=== PATIENT | male | born 1965 | race Caucasian/White ===

== ENCOUNTER 2021-01-11 09:11 | Outpatient (REF) | payer OTHER, SELFPAY ==
[2021-01-11 10:30] LABS: Hematocrit 46.1 % (42.0-52.0); Hemoglobin 14.9 g/dl (14.0-18.0); Mean Corpuscular HGB Conc 32.3 g/dl (31.0-36.0); Mean Corpuscular Hemoglobin 28.3 pg (27.0-33.0); Mean Corpuscular Volume 87.5 fL (80.0-98.0); Mean Platelet Volume 9.9 fL (9.4-12.4); Platelet Count 215 X10*3/uL (160-400); Red Blood Count 5.27 X10*6/uL (4.60-5.80); White Blood Count 6.2 X10*3/uL (4.8-10.8)
[2021-01-11 10:39] LABS: Appearance Urine CLEAR; Color Urine YELLOW; Glucose Urine UA NEG (NEG); Leukocyte Esterase Urine NEG (NEG); Nitrite Urine NEG (NEG); Specific Gravity - Urine <= 1.005 (1.005-1.025); Urine Blood NEG (NEG); Urine Ketones NEG (NEG); Urine Protein NEG (NEG-TRACE)
[2021-01-11 10:43] LABS: Alanine Aminotransferase 21 U/L (0-40); Albumin Level 4.2 g/dL (3.5-5.0); Alkaline Phosphatase 56 U/L (39-117); Anion Gap 9 (12-20); Aspartate Amino Transferase 25 U/L (5-37); Bilirubin Direct 0.3 mg/dL (0.0-0.5); Bilirubin Total 0.8 mg/dL (0.0-1.0); Blood Urea Nitrogen 9 mg/dL (9-16); Calcium 9.1 mg/dL (8.4-10.2); Carbon Dioxide 29 mmol/L (22-29); Chloride 105 mmol/L (96-108); Cholesterol 173 mg/dL; Estimated Glomerular Filt Rate > 60; Glucose Random 96 mg/dL (60-115); HDL Cholesterol 41 mg/dL; LDL Cholesterol Calculated 115 mg/dl; Sodium 139 mmol/L (135-145); Total Protein 6.8 g/dL (6.5-8.0); Triglycerides 88 mg/dL
[2021-01-18 19:41] LABS: Vitamin D 25-OH, D2 <4 ng/mL; Vitamin D 25-OH, D3 19 ng/mL; Vitamin D 25-OH, Total 19 ng/mL (30-100)
== END 2021-01-11 09:12 | disposition home or self-care (01) ==
LOC: HO.10HDL 09:11
PROVIDERS: Visit Provider Internal Medicine
DX: Z00.00 Encounter for general adult medical examination without abnormal findings (principal)
CPT/HCPCS: 36415; 80048; 80061; 80076; 81003; 82306; 85027

== ENCOUNTER 2022-03-01 09:01 | Outpatient (REF) | payer OTHER, SELFPAY ==
[2022-03-01 10:18] LABS: Hematocrit 46.4 % (42.0-52.0); Hemoglobin 15.2 g/dl (14.0-18.0); Mean Corpuscular HGB Conc 32.8 g/dl (31.0-36.0); Mean Corpuscular Hemoglobin 27.2 pg (27.0-33.0); Mean Corpuscular Volume 83.2 fL (80.0-98.0); Mean Platelet Volume 9.7 fL (9.4-12.4); Platelet Count 230 X10*3/uL (160-400); Red Blood Count 5.58 X10*6/uL (4.60-5.80); White Blood Count 6.5 X10*3/uL (4.8-10.8)
[2022-03-01 11:22] LABS: Alanine Aminotransferase 30 U/L (0-40); Albumin Level 4.1 g/dL (3.5-5.0); Alkaline Phosphatase 49 U/L (39-117); Anion Gap 11 (12-20); Aspartate Amino Transferase 25 U/L (5-37); Bilirubin Direct 0.2 mg/dL (0.0-0.5); Bilirubin Total 0.6 mg/dL (0.0-1.0); Blood Urea Nitrogen 13 mg/dL (9-16); Calcium 9.2 mg/dL (8.4-10.2); Carbon Dioxide 28 mmol/L (22-29); Chloride 105 mmol/L (96-108); Cholesterol 187 mg/dL; Estimated Glomerular Filt Rate > 60; Glucose Random 94 mg/dL (60-115); HDL Cholesterol 38 mg/dL; LDL Cholesterol Calculated 113 mg/dl; Potassium 4.3 mmol/L (3.3-5.1); Sodium 140 mmol/L (135-145); Total Protein 6.6 g/dL (6.5-8.0); Triglycerides 181 mg/dL
[2022-03-01 11:42] LABS: Thyroid Stimulating Hormone 0.69 uIU/mL (0.32-4.0)
== END 2022-03-01 09:02 | disposition home or self-care (01) ==
LOC: HO.LAB 09:01
PROVIDERS: PCP Internal Medicine; Visit Provider Internal Medicine
DX: E78.00 Pure hypercholesterolemia, unspecified (principal)
CPT/HCPCS: 36415; 80048; 80061; 80076; 84443; 85027

== ENCOUNTER 2022-08-29 09:46 | Outpatient (AMB) | payer OTHER, SELFPAY ==
--- NOTE | 2022-08-29 09:48 | MHC.PC.OV ---
Vital Signs 08/29/22 09:49 Height 5 ft 3 in Weight 169 lb 4 oz BMI 30.0 BP 120/80 Blood Pressure Location Lt brachial Position Sitting Pulse 80 Pulse Source Pulse Oximeter Pulse Oximetry (%) 96 Oxygen Delivery Method Room Air Intake Visit Reasons: 6m F/U Intake Note: Patient is here to follow up on health concerns. Complaint of ongoing migraine. Requesting for cologard results. Ramp And Cargo Supervisor Required: No Specimen Preparation Assistant: Not Required per policy Accompanied by: Self / Same As Patient Allergies No Known Allergies Allergy (Verified 08/29/22 13:12) almonds Allergy (Unknown, Uncoded 08/29/22 13:12) itchy throat Medication List - Last Reconciled 08/29/22 by Ramone Chavez MD cholecalciferol (vitamin D3) (Dialyvite Vitamin D3 Max) 1,250 mcg PO QWEEK multivitamin 1 tab PO DAILY Tobacco use date assessed: 08/29/22 Dental Screening Dental Screen Date: 08/29/22 Did you have a dental visit in the last 12 months?: Yes Did you have a dental problem in the last 6 months where you did not have access to dental care?: No Was dental information given to patient?: Patient has dentist HPI 6m F/U HPI Details 57-year-old male presents to the office to discuss his chronic medical conditions. Patient has been traveling extensively. He has been suffering from headaches for the past 8 weeks. Constant headache in the midline. Minimal relief with local analgesia 6. He has had history of migraine in the past. No nausea or vomiting. No vision changes. When he was in [place], he was treated for sinusitis with antibiotics. 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 [facility] Surgical History History of elbow surgery Social History Housing: Condominium Alcohol intake: never Patient Tobacco Use Status: Current someday Tobacco user Tobacco use type: Cigarette Cigarettes Per Day: 1 Years Smoked: 30 years e-Cigarette/Vaping Use: Never Used Second Hand Smoke Exposure: No service: No Current occupational status: employed Current occupation: Self Employed Current occupational exposures/hazards: No Cognitive needs: No Hearing needs: No Vision needs: No Questionnaire Thrive Questionnaire Date Thrive assessed: 02/28/22 SANA-7 AMB Questionnaire SANA-7 Date SANA - 7 assessed: 02/28/22 Source: Developed by Drs. Giles Oviedo, Janice Dunn, Zach Pascal and colleagues, with an educational felipa from [employer]. Physical exam (Primary Care) Vital Signs: Last Vital Signs Pulse 80 08/29/22 09:49 BP 120/80 08/29/22 09:49 Pulse Ox 96 08/29/22 09:49 Oxygen Delivery Method Room Air 08/29/22 09:49 BMI result Body Mass Index 30.0 Tobacco/Smoking Status: Tobacco use Status Tobacco use date assessed 08/29/22 08/29/22 09:56 Patient Tobacco Use Status Current someday Tobacco 08/29/22 09:56 Tobacco use type Cigarette 08/29/22 09:56 e-Cigarette/Vaping Use Never Used 08/29/22 09:56 Are you ready to quit: No Tobacco cessation counseling provided: No Thrive Assessment: Date of Thrive Assessment Date Thrive assessed 02/28/22 08/29/22 09:56 Advance Care Planning discussion: Exists, not on file Date of discussion: 08/29/22 Who was present: Patient Forms completed: Health Care Proxy and MOLST Time spent: 1-15 minutes, not on file Actual minutes spent: 5 Const General: cooperative, healthy appearing and comfortable HENMT Head: Yes normal to inspection and Yes atraumatic Eyes General: appearance normal, both eyes and all related structures Neck Neck: Yes normal visual inspection and Yes full ROM Chest Chest palpation & inspection: normal inspection of the chest Resp Effort & Inspection: normal respiratory effort Auscultation: clear to auscultation bilaterally Cardio Jugular venous distension: no JVD Palpation: normal PMI Rate: regular rate Heart sounds: S1 normal heart sound present and S2 normal heart sound present GI Palpation (GI): Soft to palpation and No hepatosplenomegaly present Extrem General: Yes normal to inspection and Yes full ROM Assessment and Plan Assessment & Plan (1) Headache: Code(s): R51.9 - Headache, unspecified Plan: A CT scan of the head has been scheduled. Will call with the results. Blood work has been ordered. Orders: Orders Basic Metabolic Panel Today R51.9 - Headache, unspecified Lipid Panel Today R51.9 - Headache, unspecified Liver Panel Today R51.9 - Headache, unspecified Thyroid Stimulating Hormone Today R51.9 - Headache, unspecified Complete Blood Count no Diff Today R51.9 - Headache, unspecified UA and rflx microscopic Today R51.9 - Headache, unspecified Coding Level of Care Code Est Pt Level 4 (03789) Diagnoses Headache R51.9 Additional Codes Vital Signs *Quality* - Advance Care Planning discussion: Exists, not on file ([id number]) Vital Signs *Quality* - Time spent: 1-15 minutes, not on file ([id number])
[2022-08-29 09:49] VITALS: BP 120/80; PULSE 80; O2SAT 96
== END 2022-08-29 11:27 | disposition home or self-care (01) ==
PROVIDERS: Visit Provider Internal Medicine
DX: R51.9 Headache, unspecified (principal); Z00.00 Encounter for general adult medical examination without abnormal findings
CPT/HCPCS: 1123F; 1124F; 99214

== ENCOUNTER 2022-08-30 09:37 | Outpatient (REF) | payer OTHER, SELFPAY ==
[2022-08-30 10:40] LABS: Hematocrit 47.5 % (42.0-52.0); Hemoglobin 15.4 g/dl (14.0-18.0); Mean Corpuscular HGB Conc 32.4 g/dl (31.0-36.0); Mean Corpuscular Hemoglobin 27.5 pg (27.0-33.0); Mean Corpuscular Volume 84.7 fL (80.0-98.0); Mean Platelet Volume 9.7 fL (9.4-12.4); Platelet Count 216 X10*3/uL (160-400); Red Blood Count 5.61 X10*6/uL (4.60-5.80); Red Cell Distribution Width 12.7 % (11.0-16.0); White Blood Count 6.4 X10*3/uL (4.8-10.8)
[2022-08-30 10:48] LABS: Appearance Urine Clear; Color Urine Yellow; Glucose Urine UA Negative (Negative); Leukocyte Esterase Urine Negative (Negative); Nitrite Urine Negative (Negative); PH 6.5 (5.0-9.0); Urine Blood Negative (Negative); Urine Ketones Negative (Negative); Urine Protein Negative (Neg-Trace)
[2022-08-30 11:22] LABS: Alanine Aminotransferase 27 U/L (0-40); Albumin Level 4.2 g/dL (3.5-5.0); Alkaline Phosphatase 57 U/L (39-117); Anion Gap 10 (12-20); Aspartate Amino Transferase 23 U/L (5-37); Bilirubin Direct 0.2 mg/dL (0.0-0.5); Bilirubin Total 0.6 mg/dL (0.0-1.0); Blood Urea Nitrogen 9 mg/dL (9-16); Calcium 9.1 mg/dL (8.4-10.2); Carbon Dioxide 29 mmol/L (22-29); Chloride 105 mmol/L (96-108); Cholesterol 189 mg/dL; Estimated Glomerular Filt Rate > 60; Glucose Random 89 mg/dL (60-115); HDL Cholesterol 42 mg/dL; LDL Cholesterol Calculated 114 mg/dl; Potassium 3.9 mmol/L (3.3-5.1); Sodium 140 mmol/L (135-145); Total Protein 6.9 g/dL (6.5-8.0); Triglycerides 165 mg/dL
[2022-08-30 11:27] LABS: Thyroid Stimulating Hormone 0.98 uIU/mL (0.32-4.0)
== END 2022-08-30 09:38 | disposition home or self-care (01) ==
LOC: HO.LAB 09:37
PROVIDERS: PCP Internal Medicine; Visit Provider Internal Medicine
DX: R51.9 Headache, unspecified (principal)
CPT/HCPCS: 36415; 80048; 80061; 80076; 81003; 84443; 85027

== ENCOUNTER 2022-09-06 12:30 | Emergency (ER) | payer OTHER, SELFPAY ==
--- NOTE | ~2022-09-06 | CT_ITS ---
EXAMINATION: CT HEAD WITHOUT CONTRAST CLINICAL INFORMATION: Headache. Hollenhorst plaque left eye. COMPARISON: 01/26/2019 TECHNIQUE: Contiguous axial imaging was performed from the skull base to vertex without intravenous administration of contrast. This CT examination was performed using dose optimization techniques as appropriate, variously including the following: *Automated exposure control *Adjustment of mA and/or kV according to patient size (this includes techniques or standardized protocols for targeted exams where dose is matched to indication/reason for exam; i.e. extremities or head) *Use of iterative reconstruction technique DLP: 630 mGy-cm FINDINGS: There is no evidence of acute intracranial hemorrhage or territorial infarction. No mass effect or midline shift is seen. Quinonez to white matter differentiation is preserved. No extra-axial fluid collections are identified. The ventricles are normal in size. The osseous structures and soft tissues are unremarkable. The mastoid air cells and visualized portions of the paranasal sinuses are well aerated. Possible left maxillary sinus mucous retention cyst. CT/CT head/brain wo IV con IMPRESSION: No acute intracranial pathology.
[2022-09-06 12:47] VITALS: BP 168/97; PULSE 74; RESP 18; TEMP 36.7; O2SAT 98; BMI 29.2
--- NOTE | 2022-09-06 12:47 | ED_ITS ---
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 Patient reports that he has been experiencing a left-sided headache for the past 3-4 months. It typically lasts for days at a time with pressure to the left eye before resolving. He was evaluated by his primary care provider about a week ago, states that he had blood work obtained which was reportedly normal. He saw the foiling machine operator today who advised him that he has a Hollenhurst plaque in this puts him at risk for stroke therefore he was referred to the emergency department. Patient denies dizziness, lightheadedness, vision changes, neck pain, neck stiffness, chest pain, shortness of breath, difficulty breathing, nausea, vomiting, abdominal pain, numbness or tingling of the extremities, weakness. Related Data Home Medications Medication Instructions Recorded Confirmed multivitamin 1 tab PO DAILY 01/11/21 08/29/22 Previous Rx's Medication Instructions Recorded cholecalciferol (vitamin D3) 1,250 1,250 mcg PO QWEEK #12 tabs 04/18/21 mcg (50,000 unit) tablet (Dialyvite Vitamin D3 Max) [id number] 1 cap PO Q8H PRN pain #14 caps 09/06/22 50 mg-300 mg-40 mg capsule (Fioricet) Allergies Allergy/AdvReac Type Severity Reaction Status Date / Time No Known Allergies Allergy Verified 08/29/22 13:12 almonds Allergy Unknown itchy Uncoded 08/29/22 13:12 throat Review of Systems Review of Systems: Constitutional : No Fever, No Chills, No Fatigue ENT/Mouth : No sore throat, No Rhinorrhea Eyes: No Eye Pain, No Swelling, No Redness Cardiovascular : No Chest Pain, No SOB, No Dyspnea on Exertion Respiratory : No Cough, No Sputum Gastrointestinal : No Nausea, No Vomiting, No Diarrhea, No abdominal Pain Genitourinary : No Dysuria, No Urinary Frequency, No Hematuria, Musculoskeletal : No joint pain, No Myalgias, No Joint Swelling Skin : No Skin Lesions, No rash Neuro : No Weakness, No Numbness, No Dizziness, positive Headache Psych : No Anxiety/Panic, No Depression Heme/Lymph: No Bruising, No Bleeding,No Lymphadenopathy Endocrine : No Polyuria, No Polydipsia Yes all other systems are reviewed and are negative [facility] Past Medical History Attestation statement: The following information was validated with the patient. Source: old records reviewed Surgical History History of elbow surgery Social History Social History Housing: Condominium Alcohol intake: never Patient Tobacco Use Status: Current someday Tobacco user Tobacco use type: Cigarette Cigarettes Per Day: 1 Years Smoked: 30 years e-Cigarette/Vaping Use: Never Used Second Hand Smoke Exposure: No Advance Directives: No Advance Directives Information Provided: Yes service: No Current occupational status: employed Current occupation: Self Employed Current occupational exposures/hazards: No Cognitive needs: No Hearing needs: No Vision needs: No Physical Exam ED Vital Signs: Vital Signs - 24 hr 09/06/22 12:47 09/06/22 17:54 09/06/22 20:23 Temperature 98.1 F 97.3 F Pulse Rate 74 62 62 Respiratory Rate 18 18 16 Blood Pressure 168/97 H 148/93 H 155/91 H Pulse Oximetry 98 96 96 Oxygen Delivery Method Room Air Room Air Room Air BMI result Body Mass Index 29.2 Appearance: Alert.?Oriented to person, place and time. No acute di stress.?Normal affect. Head: Normocephalic, atraumatic Eyes: Pupils equal, round and reactive to light. EOMI. No nystagmus. No tenderness to palpation over the temporal region. ENT: External auditory canal normal tympanic membrane pearly scott and intact bilaterally. Oropharynx normal. Neck: Normal inspection.? Neck supple. CVS: Heart sounds normal. Normal heart rate and rhythm.? Pulses normal.?? Respiratory: No respiratory distress.? Lung sounds clear to auscultation bilaterally?? Abdomen: Soft and non-tender. Normoactive bowel sounds. ?? Skin: Skin warm and dry.? Normal skin color.? ?? Extremities: No lower extremity edema.? Neuro: Moves all extremities spontaneously. Sensation intact bilaterally. CN II- XII intact. No focal neuro deficits. Ambulatory with steady gait. Course Course Course Narrative: This is a rapid medical exam: Additional HPI, ROS, PE not included below will be deferred to primary provider. Patient is a 57-year-old male presenting to the ED with complaint of severe headache for months, left eye pressure. States had lens replacement to left eye 3 yrs prior. Denies history of migraines. Saw foiling machine operator today and was told he has Hollenhorst plaque and was referred to the ED. States he is not on any medications, just vitamins. Plan: labs, CT head Reevaluation(s) Reevaluation #1: ESR and CRP are within normal limits, not consistent with GCA. Troponin <2.7, EKG revealing normal sinus rhythm without acute ischemic findings, or sign of LVH. Patient had significant improvement headache after receiving Fioricet. Will send prescription to the pharmacy advised outpatient follow-up with primary care provider as noted previously in the narrative. All questions answered. Stable for discharge. Time: 20:09 Medications Administered Discontinued Medications Generic Name Dose Route Start Last Admin Trade Name Freq PRN Reason Stop Dose Admin Acetaminophen/Butalbital/Caffeine 1 tab 09/06/22 17:34 09/06/22 17:53 Butalb/Acetamin/Caff 50/325/40 Tablet PO 09/06/22 17:35 1 tab ONCE ONE Administration Medical Decision Making Medical Decision Making MDM Narrative: NIH stroke score 0. No focal neurological deficits upon examination. Patient was advised to his foiling machine operator that he has a Hollenhurst plaque, which puts him at risk for stroke and therefore he was advised to come to the emergency department for evaluation. Reviewed with patient stroke risk factor reductions; management of hypertension, patient is currently overweight with BMI at 29.2, recent cholesterol levels obtained 09/01/2022 without abnormality, LDL could be lower given diagnosis, smoking cessation as he is an occasional smoker , diet and exercise, avoidance of alcohol. CT of the head was obtained which reveals no acute intracranial pathology, not consistent with SDH, SAH, ICH, HAND SCREEN PRINTER mass. There is no meningismus, low suspicion for meningitis or encephalitis. Serum labs are overall unremarkable no leukocytosis or anemia, BMP within normal limits. Discussed with patient plan of care, will trial Fioricet at this time for pain management, additionally will obtain ESR and CRP to exclude GCA though I have a lower suspicion at this time. Differential Diagnosis Differential Diagnoses: The differential diagnosis associated with the presentation includes (SDH, SAH, ICH, HAND SCREEN PRINTER mass, meningitis, encephalitis, CVA, GCA, migraine, headache) Admission/Observation Consideration of admission/observation: Escalation of care including admission/observation considered (I considered hospital admission for intractable headache, see above narrative and course narrative) Lab Data MDM Lab Attestation statement: I reviewed the patient's lab results. (As noted above) 09/06/22 13:30 09/06/22 13:30 Labs: Lab Results 09/06/22 09/06/22 09/06/22 Range/Units 13:30 13:30 13:30 WBC 7.2 (4.8-10.8) X10*3/uL RBC 5.64 (4.60-5.80) X10*6/uL Hgb 15.7 (14.0-18.0) g/dl Hct 47.5 (42.0-52.0) % MCV 84.2 (80.0-98.0) fL MCH 27.8 (27.0-33.0) pg MCHC 33.1 (31.0-36.0) g/dl RDW 12.8 (11.0-16.0) % Plt Count 210 (160-400) X10*3/uL MPV 9.2 L (9.4-12.4) fL Immature Gran % (Auto) 1.2 H (0.0-0.4) % Neut % (Auto) 64.5 (45-73) % Lymph % (Auto) 22.5 (20-40) % Mcmullen % (Auto) 9.3 (2-11) % Eos % (Auto) 1.7 (0-4) % Baso % (Auto) 0.8 (0-2) % Lymph # (Auto) 1.6 (1.2-4.9) X10*3/uL Mcmullen # (Auto) 0.7 (0.1-1.2) X10*3/uL Eos # (Auto) 0.1 (0.0-0.4) X10*3/uL Baso # (Auto) 0.1 (0.0-0.2) X10*3/uL Abs Immat Gran (auto) 0.09 H (0.00-0.03) X10*3/uL Absolute Neuts (auto) 4.7 (2.0-8.3) x10*3/uL Absolute Nucleated RBC 0.000 (0.0-0.012) X10*3/uL Nucleated RBC % (auto) 0.0 (0.0-0.2) /100WBC ESR (0-15) MM/HR PT 11.7 (11.1-13.3) SEC INR 1.0 (0.9-1.1) Sodium 140 (135-145) mmol/L Potassium 4.0 (3.3-5.1) mmol/L Chloride 104 (96-108) mmol/L Carbon Dioxide 22 (22-29) mmol/L Anion Gap 18 (12-20) BUN 12 (9-16) mg/dL Creatinine 0.87 (0.5-1.4) mg/dL Estim Creat Clear Calc 84.9 Estimated GFR > 60 Random Glucose 104 (60-115) mg/dL Calcium 9.5 (8.4-10.2) mg/dL Troponin I High Sens (<3.5-35.0) ng/L C-Reactive Protein (< or = 0.50) mg/dL 09/06/22 09/06/22 09/06/22 Range/Units 18:39 18:39 18:39 WBC (4.8-10.8) X10*3/uL RBC (4.60-5.80) X10*6/uL Hgb (14.0-18.0) g/dl Hct (42.0-52.0) % MCV (80.0-98.0) fL MCH (27.0-33.0) pg MCHC (31.0-36.0) g/dl RDW (11.0-16.0) % Plt Count (160-400) X10*3/uL MPV (9.4-12.4) fL Immature Gran % (Auto) (0.0-0.4) % Neut % (Auto) (45-73) % Lymph % (Auto) (20-40) % Mcmullen % (Auto) (2-11) % Eos % (Auto) (0-4) % Baso % (Auto) (0-2) % Lymph # (Auto) (1.2-4.9) X10*3/uL Mcmullen # (Auto) (0.1-1.2) X10*3/uL Eos # (Auto) (0.0-0.4) X10*3/uL Baso # (Auto) (0.0-0.2) X10*3/uL Abs Immat Gran (auto) (0.00-0.03) X10*3/uL Absolute Neuts (auto) (2.0-8.3) x10*3/uL Absolute Nucleated RBC (0.0-0.012) X10*3/uL Nucleated RBC % (auto) (0.0-0.2) /100WBC ESR 2 (0-15) MM/HR PT (11.1-13.3) SEC INR (0.9-1.1) Sodium (135-145) mmol/L Potassium (3.3-5.1) mmol/L Chloride (96-108) mmol/L Carbon Dioxide (22-29) mmol/L Anion Gap (12-20) BUN (9-16) mg/dL Creatinine (0.5-1.4) mg/dL Estim Creat Clear Calc Estimated GFR Random Glucose (60-115) mg/dL Calcium (8.4-10.2) mg/dL Troponin I High Sens < 2.7 (<3.5-35.0) ng/L C-Reactive Protein < 0.10 (< or = 0.50) mg/dL Independent Interpretation I performed an independent interpretation of an: EKG Interpretation: Rate: 62 Rhythm:? Normal sinus rhythm Closplint:? Normal Normal P waves.? Normal MARY.?? Normal QRS complex.?? ST T wave :??No ST elevation, no ST depression, no T-wave inversion qTC: 393 prior studies:? None available for review The study has been interpreted contemporaneously by me. Radiology Impression Discussion of test interpretation with radiology: I have reviewed the radiologist's reading. Radiologist Impression: CT/CT head/brain wo IV con IMPRESSION: No acute intracranial pathology. External Record Review External record reviewed: Outpatient record (Primary care provider) Prescription Management I considered prescription management with: Pain Medication Critical Care Time Critical Care Time Critical Care Time: Yes Total Critical Care Time: 35 Attestation: I personally attest to this critical care time spent taking care of the patient exclusive of all other billable procedures was approximately 35 minutes including initial evaluation of patient, ordering tests, x-ray interpretation, EKG interpretation, medical consultation, documentation, re-evaluation. Discharge Plan Discharge Clinical Impression: Headache Patient Disposition: Home, Self-Care Instructions: Acute Headache (ED) Additional Instructions: I have sent a prescription for the Fioricet to your pharmacy at this helped with your headache. As discussed please follow-up with your primary care provider for further risk factor reduction Return back to emergency department any new or worsening symptoms or concerns. Prescriptions: New abegoxkkfg-qexvjnhrblilp-fqcl [Fioricet] 50-300-40 mg capsule 1 cap PO Q8H PRN (Reason: pain) Qty: 14 0RF No Action Dialyvite Vitamin D3 Max 1,250 mcg (50,000 unit) tablet 1,250 mcg PO QWEEK Qty: 12 0RF multivitamin Tablet 1 tab PO DAILY Referrals: Ramone Chavez MD [Primary Care Provider] - Interventions: ED Discharge Assessment Last Done: 09/06/22 20:50 Discharge Date/Time: 09/06/22 20:50
[2022-09-06 13:34] LABS: MANUAL DIFF FLAG NO
[2022-09-06 13:38] LABS: Basophils Absolute Auto 0.1 X10*3/uL (0.0-0.2); Basophils Percent Auto 0.8 % (0-2); Eosinophils Absolute Auto 0.1 X10*3/uL (0.0-0.4); Eosinophils Percent Auto 1.7 % (0-4); Hematocrit 47.5 % (42.0-52.0); Hemoglobin 15.7 g/dl (14.0-18.0); Imm Gran Abs Auto 0.09 X10*3/uL (0.00-0.03); Imm Gran Pct Auto 1.2 % (0.0-0.4); Lymphocytes Absolute Auto 1.6 X10*3/uL (1.2-4.9); Lymphocytes Percent Auto 22.5 % (20-40); Mean Corpuscular HGB Conc 33.1 g/dl (31.0-36.0); Mean Corpuscular Hemoglobin 27.8 pg (27.0-33.0); Mean Corpuscular Volume 84.2 fL (80.0-98.0); Mean Platelet Volume 9.2 fL (9.4-12.4); Monocytes Absolute Auto 0.7 X10*3/uL (0.1-1.2); Monocytes Percent Auto 9.3 % (2-11); Neutrophils Absolute Auto 4.7 x10*3/uL (2.0-8.3); Neutrophils Percent Auto 64.5 % (45-73); Platelet Count 210 X10*3/uL (160-400); Red Blood Count 5.64 X10*6/uL (4.60-5.80); Red Cell Distribution Width 12.8 % (11.0-16.0); White Blood Count 7.2 X10*3/uL (4.8-10.8)
[2022-09-06 13:41] LABS: Prothrombin Time 11.7 SEC (11.1-13.3)
[2022-09-06 13:51] LABS: Anion Gap 18 (12-20); Blood Urea Nitrogen 12 mg/dL (9-16); Calcium 9.5 mg/dL (8.4-10.2); Carbon Dioxide 22 mmol/L (22-29); Chloride 104 mmol/L (96-108); Creatinine Clr Calc Pharmacy 84.9; Estimated Glomerular Filt Rate > 60; Glucose Random 104 mg/dL (60-115); Sodium 140 mmol/L (135-145)
--- NOTE | 2022-09-06 17:39 | ECG_ITS ---
Test Reason : HYPERTENSION Blood Pressure : / mmHG Vent. Rate : 062 BPM Atrial Rate : 062 BPM P-R Int : 144 ms QRS Dur : 094 ms QT Int : 388 ms P-R-T Axes : 056 038 039 degrees QTc Int : 393 ms Normal sinus rhythm Normal ECG No previous ECGs available Referred By: Monika Burns Electronically Signed By:LAMAR GLYNN MD
[2022-09-06] MEDS: Butalb/Acetamin/Caff 50/325/40 TABLET 1 TAB PO (17:53)
[2022-09-06 17:54] VITALS: BP 148/93; PULSE 62; RESP 18; O2SAT 96
[2022-09-06 19:05] LABS: C Reactive Protein < 0.10 mg/dL (< or = 0.50)
[2022-09-06 19:18] LABS: Troponin-I High Sensitivity < 2.7 ng/L (<3.5-35.0)
[2022-09-06 19:25] LABS: Erythrocyte Sedimentation Rate 2 MM/HR (0-15)
[2022-09-06 20:23] VITALS: BP 155/91; PULSE 62; RESP 16; TEMP 36.3; O2SAT 96
== END 2022-09-06 20:50 | disposition home or self-care (01) ==
PROVIDERS: Nurse Practitioner Family; Registered Nurse Emergency; Emergency Provider Emergency Medicine Emergency Medical Services; PCP Internal Medicine
DX: R51.9 Headache, unspecified (principal); R94.31 Abnormal electrocardiogram [ECG] [EKG]; I10 Essential (primary) hypertension; Z79.899 Other long term (current) drug therapy
CPT/HCPCS: 36415; 70450; 80048; 84484; 85025; 85610; 85652; 86140; 93005; 99284; 99285

== ENCOUNTER → 2022-09-06 17:39 | Outpatient (BNV) | payer OTHER, SELFPAY | PROVIDERS: Emergency Provider Emergency Medicine Emergency Medical Services; PCP Internal Medicine; Visit Provider Internal Medicine Cardiovascular Disease | DX: I10 Essential (primary) hypertension (principal) | CPT/HCPCS: 93010 ==

== ENCOUNTER 2022-09-19 14:15 | Outpatient (AMB) | payer OTHER, SELFPAY ==
--- NOTE | 2022-09-19 14:23 | A.OFFPC_ITS ---
Vital Signs 09/19/22 14:24 Height 5 ft 3 in Weight 166 lb 8 oz BMI 29.5 BP 130/90 H Blood Pressure Location Lt brachial Position Sitting Pulse 70 Pulse Source Pulse Oximeter Pulse Oximetry (%) 97 Oxygen Delivery Method Room Air Intake Visit Reasons: [facility] 09/06/22 Intake Note: Patient is here to follow-up after a visit the emergency department at [facility] on 09/06/22. Ongoing headaches. Geography Teacher Required: No Irrigator Gravity Flow: Not Required per policy Accompanied by: Self / Same As Patient Allergies No Known Allergies Allergy (Verified 10/09/22 08:12) almonds Allergy (Unknown, Uncoded 10/09/22 08:12) itchy throat Medication List - Last Reconciled 10/09/22 by Ramone Chavez MD atorvastatin 10 mg PO BEDTIME cholecalciferol (vitamin D3) (Dialyvite Vitamin D3 Max) 1,250 mcg PO QWEEK multivitamin 1 tab PO DAILY sumatriptan succinate take 1 tab at onset of headache; if no relief may repeat 1 tab after at least 2 hrs; max = 4 tabs/24 hr PO Tobacco use date assessed: 09/19/22 Dental Screening Dental Screen Date: 09/19/22 Did you have a dental visit in the last 12 months?: No Did you have a dental problem in the last 6 months where you did not have access to dental care?: No Was dental information given to patient?: Patient has dentist HPI [facility] 09/06/22 HPI Details 57-year-old male presents for a follow-up visit. Medications prescribed in the last office visit year were of minimal help. 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 Patient was promptly referred to the emergency room and he was referred here. Continues to have pain around the left eye. He has intermittent headaches. [facility] Surgical History History of elbow surgery Social History (Updated 09/19/22 @ 14:31 by MICHAEL Neville) Housing: Condominium Alcohol intake: never Patient Tobacco Use Status: Former Tobacco user Tobacco use type: Cigarette Cigarettes Per Day: 1 Years Smoked: 30 years e-Cigarette/Vaping Use: Never Used Second Hand Smoke Exposure: No service: No Current occupational status: employed Current occupation: Self Employed Current occupational exposures/hazards: No Cognitive needs: No Hearing needs: No Vision needs: No Questionnaire Thrive Questionnaire Date Thrive assessed: 02/28/22 SANA-7 AMB Questionnaire SANA-7 Date SANA - 7 assessed: 02/28/22 Source: Developed by Drs. Giles Oviedo, Janice Dunn, Zach Pascal and colleagues, with an educational felipa from [employer]. Physical exam (Primary Care) Vital Signs: Last Vital Signs Pulse 70 09/19/22 14:24 BP 130/90 H 09/19/22 14:24 Pulse Ox 97 09/19/22 14:24 Oxygen Delivery Method Room Air 09/19/22 14:24 BMI result Body Mass Index 29.5 Tobacco/Smoking Status: Tobacco use Status Tobacco use date assessed 09/19/22 09/19/22 14:32 Patient Tobacco Use Status Former Tobacco user 09/19/22 14:32 Tobacco use type Cigarette 09/19/22 14:32 e-Cigarette/Vaping Use Never Used 09/19/22 14:32 Thrive Assessment: Date of Thrive Assessment Date Thrive assessed 02/28/22 09/19/22 14:32 Const General: cooperative, healthy appearing and comfortable HENMT Head: Yes normal to inspection and Yes atraumatic Eyes General: appearance normal, both eyes and all related structures Neck Neck: Yes normal visual inspection and Yes full ROM Chest Chest palpation & inspection: normal inspection of the chest Resp Effort & Inspection: normal respiratory effort Auscultation: clear to auscultation bilaterally Cardio Jugular venous distension: no JVD Palpation: normal PMI Rate: regular rate Heart sounds: S1 normal heart sound present and S2 normal heart sound present GI Palpation (GI): Soft to palpation and No hepatosplenomegaly present Extrem General: Yes normal to inspection and Yes full ROM Assessment and Plan Assessment & Plan (1) Migraine headache: Code(s): G43.909 - Migraine, unspecified, not intractable, without status migrainosus Plan: 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 Patient has less risk for atheroembolization. He has no history of hypertension, diabetes etc. also this is a disease of the elderly. Patient probably has classic migraine. I have started him on Triptans and an appointment with a neurologist has been made. Medications: New sumatriptan succinate take 1 tab at onset of headache; if no relief may repeat 1 tab after at least 2 hrs; max = 4 tabs/24 hr PO 14 tabs 0RF atorvastatin 10 mg PO BEDTIME 90 tabs 1RF Coding Level of Care Code Est Pt Level 4 (19831) Diagnoses Migraine headache G43.909
[2022-09-19 14:24] VITALS: BP 130/90; PULSE 70; O2SAT 97; BMI 29.5
== END 2022-09-19 15:54 | disposition home or self-care (01) ==
PROVIDERS: PCP Internal Medicine; Visit Provider Internal Medicine
DX: G43.909 Migraine, unspecified, not intractable, without status migrainosus (principal)
CPT/HCPCS: 99214

== ENCOUNTER 2024-01-20 13:09 | Outpatient (AMB) | payer OTHER, SELFPAY ==
--- NOTE | 2024-01-20 13:14 | A.OFFPC_ITS ---
Vital Signs 01/20/24 13:16 Height 5 ft 3 in Weight 172 lb 2 oz BMI 30.5 BP 130/90 H Blood Pressure Location Lt brachial Position Sitting Pulse 67 Pulse Source Pulse Oximeter Pulse Oximetry (%) 97 Oxygen Delivery Method Room Air Intake Visit Reasons: Constant headaches/sinus infection Intake Note: Patient is here to follow up on Constant headaches, sinus infection ongoing for over a week. OTC does not help with headaches. Pt decline flu shot today. Immunology Specialist Required: No Higher Education Administrator: Not Required per policy Accompanied by: Self / Same As Patient Allergies No Known Allergies Allergy (Verified 01/20/24 13:16) almonds Allergy (Unknown, Uncoded 01/20/24 13:16) itchy throat Tobacco use date assessed: 01/20/24 Dental Screening Dental Screen Date: 01/20/24 Did you have a dental visit in the last 12 months?: No Did you have a dental problem in the last 6 months where you did not have access to dental care?: No Was dental information given to patient?: Patient has dentist [facility] Surgical History History of elbow surgery Social History Housing: Condominium Alcohol intake: never Patient Tobacco Use Status: Former Tobacco user Tobacco use type: Cigarette Cigarettes Per Day: 1 Years Smoked: 30 years e-Cigarette/Vaping Use: Never Used Second Hand Smoke Exposure: No service: No Current occupational status: employed Current occupation: Self Employed Current occupational exposures/hazards: No Cognitive needs: No Hearing needs: No Vision needs: No Questionnaire PHQ-9 Over the last 2 weeks, how often have you been bothered by any of the following problems? 1. Little interest or pleasure in doing things: not at all 2. Feeling down, depressed, or hopeless: not at all 3. Trouble falling or staying asleep, or sleeping too much: not at all 4. Feeling tired or having little energy: not at all 5. Poor appetite or overeating: not at all 6. Feeling bad about yourself - or that you are a failure or have let yourself or your family down: not at all 7. Trouble concentrating on things, such as reading the newspaper or watching television: not at all 8. Moving or speaking so slowly that other people could have noticed. Or the opposite - being so fidgety or restless that you have been moving around a lot more than usual: not at all 9. Thoughts that you would be better off or of hurting yourself in some way: not at all Total score: 0 Depression Screening Interpretation: Negative Depression Screening Done: Yes Source: Developed by Drs. Giles Oviedo, Janice Dunn, Zach Pascal and colleagues, with an educational felipa from [employer]. Thrive Questionnaire Date Thrive assessed: 01/20/24 I am a: Patient What is your living situation today?: I have a steady place to live Within the past 12 months, did the food you bought not last and you didn't have the money to get more?: Never true Within the past 12 months, did you worry whether your food would run out before you got money to buy more?: Never true Do you have trouble paying for medicines?: No Do you have trouble getting transportation to medical appointments?: No Do you have trouble paying your heating and electricity bill?: No Do you have trouble taking care of your child, family member or friend?: No Do you have trouble with day-to-day activities such as bathing, preparing meals, shopping, managing finances, etc.?: No Are you currently unemployed and looking for a job?: No Are you interested in more education?: No Currently or been in a relationship where the following occur: No concerns reported THRIVE Score: 0 AUDIT C Alcohol Use Questionnaire (AUDIT-C) 1. How often do you have a drink containing alcohol?: Never 3. How often do you have six or more drinks on one occasion?: Never Total Score: 0 SANA-7 AMB Questionnaire SANA-7 Date SANA - 7 assessed: 01/20/24 Feeling nervous, anxious, or on edge: 0 = Not at all Not being able to stop or control worryin = Not at all Worrying too much about different things: 0 = Not at all Trouble relaxin = Not at all Being so restless that it is hard to sit still: 0 = Not at all Becoming easily annoyed or irritable: 0 = Not at all Feeling afraid as if something awful might happen: 0 = Not at all Total SANA-7 score (0-4 normal; 5-9 mild; 10-14 moderate; 15-21 severe): 0 Source: Developed by Drs. Giles Oviedo, Janice Dunn, Zach Pascal and colleagues, with an educational felipa from [employer]. Physical exam (Primary Care) Vital Signs: Last Vital Signs Pulse 67 01/20/24 13:16 BP 130/90 H 01/20/24 13:16 Pulse Ox 97 01/20/24 13:16 Oxygen Delivery Method Room Air 01/20/24 13:16 BMI result Body Mass Index 30.5 Tobacco/Smoking Status: Tobacco use Status Tobacco use date assessed 01/20/24 01/20/24 13:22 Patient Tobacco Use Status Former Tobacco user 01/20/24 13:22 Tobacco use type Cigarette 01/20/24 13:22 e-Cigarette/Vaping Use Never Used 01/20/24 13:22 PHQ-9: PHQ-9 Score PHQ-9: Total score 0 01/20/24 13:22 Depression Screening Interpretation: Negative Thrive Assessment: Date of Thrive Assessment Date Thrive assessed 01/20/24 01/20/24 13:22 Currently or been in a relationship where the following occur: No concerns reported Coding Level of Care Code Est Pt Level 3 (88600) Complex EM visit Add On G2211 Diagnoses Acute maxillary sinusitis J01.00 Assessment & Plan Assessment & Plan (1) Acute maxillary sinusitis: Code(s): J01.00 - Acute maxillary sinusitis, unspecified Plan: See below Plan History of Present Illness The patient is a 58-year-old male presenting with recurrent headaches. He reports that the headaches have been intermittent, describing a cycle where they come and go. A CT scan done at the hospital and [place] showed [place] significant abnormalities, leading to a diagnosis of severe migraines. The patient reported undergoing a traditional treatment involving bloodlet[place] with [facility] [place], which provided relief for about a year and a half. Recently, [place], the headaches recurred despite using typical analgesics. The patient suspects sinus involvement due to concurrent ear pain and possible sinus pain. There are no associated symptoms such as nasal discharge, cough, fever, or chills reported. Stress is noted as a contributing factor. A previous eye surgery for lens placement was performed roughly two years ago, with concerns raised about potential blockages and pressure around the left eye; however, no concrete evidence of complications was found. Recently, an x-ray suggested a sinus infection, confirmed [place]. Social History - Reports high levels of stress Review of Systems - HEENT: Denies nasal discharge, cough, or fever. Physical Exam General: Appearance normal, both eyes and all related structures Nutritional Appearance: Well nourished Orientation/consciousness: Patient oriented x3 Limitations: No limitations Head: Normal to inspection, but patient reports headache and pressure in the left eye Neck: Normal visual inspection Chest: Normal palpation of entire chest wall Respiratory: Normal respiratory effort Neurology: Patient oriented x3 Results - MRI: No abnormalities related to headaches - CT Scan: No significant findings - X-ray: Evidence of sinus infection on the left side (as per [place] report) Plan - Prescribe antibiotics to address the suspected sinusitis. - Continue current migraine management strategies, understanding that stress might contribute to its aggravation. - Evaluate response to antibiotic therapy and consider further imaging if symptoms do not improve. Patient was informed and verbally consented to the use of an ambient scribe for clinic note documentation during this visit. Discussion Notes Patient Instructions - Start the prescribed antibiotic regimen promptly. - Monitor headache symptoms and note any changes. - Practice stress-reduction techniques to help manage headache triggers. - Return for follow-up if symptoms persist or worsen, or if additional concerns arise. Medications: New azithromycin take 500 mg today (day 1), then 250 mg for 4 days (days 2-5) PO 6 tabs 0RF meloxicam 15 mg PO DAILY 14 tabs 0RF
[2024-01-20 13:16] VITALS: BP 130/90; PULSE 67; O2SAT 97; BMI 30.5
== END 2024-01-20 13:44 | disposition home or self-care (01) ==
PROVIDERS: PCP Internal Medicine; Visit Provider Internal Medicine
DX: J01.00 Acute maxillary sinusitis, unspecified (principal)

== ENCOUNTER → 2024-01-20 13:09 | Outpatient (BNVA) | payer OTHER, SELFPAY | PROVIDERS: PCP Internal Medicine; Visit Provider Internal Medicine | DX: J01.00 Acute maxillary sinusitis, unspecified (principal) | CPT/HCPCS: 96127; 99212 ==